=== PATIENT | male | born 1950 | race Caucasian/White ===

== ENCOUNTER 2020-07-03 21:22 | Inpatient (IN) | payer MEDICARE ==
[~2020-07-03] VITALS: Ht 180.3 cm; Wt 92.5 kg
[2020-07-03 21:23] VITALS: BP 186/87
[2020-07-03 21:38] LABS: ABSOLUTE NEUTROPHILS 6.3 thou/uL (1.4-8.2); BASOPHILS 1.5 % (0.0-2.0); EOSINOPHILS 5.4 % (0.0-3.0); HEMATOCRIT 39.6 % (42.0-52.0); HEMOGLOBIN 13.4 gm/dL (14.0-18.0); LYMPHOCYTES 24.9 % (24.0-44.0); MCH 29.1 pg (26.0-34.0); MCHC 33.9 g/dL (28.0-37.0); MCV 85.6 fL (80.0-100.0); PLATELET COUNT 322 thou/uL (150-400); POLYS 60.2 % (36.0-66.0); RBC 4.63 mil/uL (4.50-6.00); RDW 15.5 % (10.5-14.5); WBC 10.4 thou/uL (4.0-11.0)
[2020-07-03 21:48] LABS: ANION GAP 10 mmol/L (7-16); BUN 18 mg/dL (7-18); CALCIUM 8.1 mg/dL (8.5-10.1); CHLORIDE 101 mmol/L (98-107); CO2 24 mmol/L (21-32); CREATININE 1.1 mg/dL (0.7-1.3); GLUCOSE 103 mg/dL (74-106); POTASSIUM 4.9 mmol/L (3.5-5.1); SODIUM 135 mmol/L (136-145)
[2020-07-03 21:57] LABS: ALBUMIN 3.1 g/dL (3.4-5.0); SGOT 38 U/L (15-37); SGPT 18 U/L (30-65); TOTAL BILIRUBIN 0.6 mg/dL (0.2-1.0); TOTAL PROTEIN 7.7 g/dL (6.4-8.2); TROPONIN-I <0.06 ng/mL (<0.06)
[2020-07-03] MEDS ORDERED: PROTONIX40 M2 PO (22:14)
[2020-07-03 22:39] VITALS: BP 174/99
[2020-07-03 22:54] VITALS: BP 142/82
[2020-07-03 23:00] LABS: CHOLESTEROL 109 mg/dL (<200); HDL CHOLESTEROL 38 mg/dL (>40); LDL CHOLESTEROL 57 mg/dL (<100); SERUM ASSESSMENT Clear; TC:HDL 2.9 Ratio (Not establshd); TRIGLYCERIDE 73 mg/dL (<150); VLDL 15 mg/dL (<40)
[2020-07-03 23:30] VITALS: BP 148/81
[2020-07-04] VITALS (11 sets, daily range): BP systolic 91–181; BP diastolic 43–90
[2020-07-04 05:04] LABS: CALCIUM 8.6 mg/dL (8.5-10.1); CREATININE 1.1 mg/dL (0.7-1.3)
[2020-07-04 05:08] LABS: HEMATOCRIT 39.9 % (42.0-52.0); HEMOGLOBIN 13.3 gm/dL (14.0-18.0); MCH 28.7 pg (26.0-34.0); MCHC 33.2 g/dL (28.0-37.0); MCV 86.5 fL (80.0-100.0); RBC 4.62 mil/uL (4.50-6.00); RDW 15.3 % (10.5-14.5); WBC 9.7 thou/uL (4.0-11.0)
[2020-07-04 05:34] LABS: POTASSIUM 3.7 mmol/L (3.5-5.1)
--- NOTE | 2020-07-04 07:08 | EKG ---
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
--- NOTE | 2020-07-04 07:19 | NUR ---
RECEIVED REPORT FROM BRODIE ARMSTRONG RN.A/O X 4.UP WITH STANDBY ASSIST.DENIES CHEST PAIN.COMPLAIN OF RIGHT SHOULDER PAIN THIS MORNING.IBUPROFEN GIVEN.MONITOR SHOWS SR.POC CONTINUED.
--- NOTE | 2020-07-04 07:37 | NUR ---
consult for advanced dir. quan spoke with us and spiritual care to visit with alejandro about advanced dir.
--- NOTE | 2020-07-04 07:56 | EKG ---
[facility] [place] [address] ELECTROCARDIOGRAM REPORT Name: NELLIE LOCO YOHANA Room #: 211-P ADM IN M.R.#: [id number] Admission: 07/03/20 Attend Phys: Andrea Choe Discharge: Date of : 46 Report #: [id number] [facility] Test Date: 2020-07-04 Test Time: 07:20:32 Pat Name: NELLIE LOCO Department: Room: 211 P Gender: M Dish Carrier: JUAN : 1950 Requested By: Jacklyn Jennings Order Number: [id number] MD: Som Young Measurements Intervals [place] Rate: 76 P: 14 GA: 217 QRS: 6 QRSD: 97 T: 17 QT: 436 QTc: 491 Interpretive Statements Sinus rhythm Borderline prolonged GA interval Probable left ventricular hypertrophy Baseline wander in lead(s) V3 Compared to ECG 07/03/2020 21:27:37 No significant changes Electronically Signed On 07-04-2020 7:56:04 CDT by Som Young [email or web address] <ELECTRONICALLY SIGNED> By: Som Young MD, [facility] 07/04/20 0756 9 9 Som Young MD, [facility] /EPI
--- NOTE | 2020-07-04 11:59 | 2DMMODE ---
[facility] [address] [place] [address] 2 D/M-MODE ECHOCARDIOGRAM Name: NELLIE LOCO RAY Room #: 211-P ADM IN M.R.#: [id number] Admission: 07/03/20 Attend Phys: Andrea Choe Discharge: Date of : 46 Report #: [id number] THIS REPORT FOR: cc: Ena Delacruz MD, Cheryl Z. MD Park, Jin S. 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 Indications Chest Pain Echo Enhancing Agent Indication: Endocardial border delineation Agent(s) / Amount(s) Used: Optison 3 cc 2D Dimensions IVSd: 10.78 (7-11mm) LVOT Diam: 20.73 (18-24mm) LVDd: 45.19 mm PWd: 10.74 (7-11mm) Ascending Ao: 37.84 (22-36mm) LVDs: 29.08 (25-40mm) Aortic Root: 37.66 mm Aortic Valve AoV Peak Alek.: 1.29 m/s AO Peak Gr.: 6.68 mmHg LVOT Max P.89 mmHg LVOT Max V: 0.99 m/s JACK Vmax: 2.57 cm2 [facility] [address] [place] [address] 2 D/M-MODE ECHOCARDIOGRAM Name: NELLIE LOCO [place] Room #: 211-P ADM IN M.R.#: [id number] Admission: 07/03/20 Attend Phys: Andrea Latham Discharge: Date of : 46 Report #: [id number] Mitral Valve E/A Ratio: 0.9 MV Decel. Time: 319.67 ms MV E Max Alek.: 0.66 m/s MV A Alek.: 0.77 m/s MV PHT: 92.70 ms IVRT: 96.89 ms Pulmonary Valve PV Peak Alek.: 0.98 m/s PV Peak Gr.: 3.86 mmHg Tricuspid Valve TR Peak Alek.: 2.15 m/s TR Peak Gr.: 19.00 mmHg Left Ventricle The left ventricle is normal size. There is normal LV segmental wall motion. There is normal left ventricular wall thickness. The left ventricular systolic function is normal. LVEF is 55-60%. Mild diastolic dysfunction is present (impaired relaxation pattern). Right Ventricle The right ventricle is normal size. The right ventricular systolic function is normal. Atria The left atrium size is normal. The right atrium size is normal. Aortic Valve The Aortic valve is sclerotic. No aortic regurgitation is present. There is no aortic valvular stenosis. Mitral Valve The mitral valve is normal in structure. There is no mitral valve regurgitation noted. No evidence of mitral valve stenosis. Tricuspid Valve The tricuspid valve is normal in structure. Trace tricuspid regurgitation. Estimated PAP is 19mmHg plus the right atrial pressure. Pulmonic Valve Pulmonic valve is not well visualized. There is no pulmonic valvular regurgitation. [facility] [address] [place] [address] 2 D/M-MODE ECHOCARDIOGRAM Name: NELLIE LOCO Room #: 211-P [facility] IN M.R.#: [id number] Admission: 07/03/20 Attend Phys: Andrea Latham Discharge: Date of : 46 Report #: [id number] Great Vessels The aortic root and ascending aorta measure at the upper limits of normal. IVC is poorly visualized. Pericardium There is no pericardial effusion. <Conclusion> The left ventricle is normal size. There is normal left ventricular wall thickness. The left ventricular systolic function is normal. Mild diastolic dysfunction is present (impaired relaxation pattern). The right ventricle is normal size. The left atrium size is normal. The Aortic valve is sclerotic. There is no mitral valve regurgitation noted. <ELECTRONICALLY SIGNED> By: Devan Hidalgo MD 07/04/20 1159 1159 1159 Devan Hidalgo MD /INF
--- NOTE | 2020-07-04 15:53 | NUR ---
ASSESSMENT: CM REVIEWED CHART. PT WAS ADMITTED DUE TO CHEST PAIN. PT HAD CATH TODAY. PT REPORTS THAT HE LIVES AT HOME BY HIMSELF. PT REPORTS HE IS FULLY INDEPENDENT WITH ADLS AND AMBULATION. PT REPORTS NO HX OF HH OR SNF. PT REPORTS HE DOES NOT HAVE ANY DME OR THE NEED FOR IT. PT REPORTS HIS PCP IS DR. GARCAI IN [place], [place] AT [facility]. CM DISCUSSED ROLE. PT DOES NOT ANTICIPATE ANY NEEDS AT DISCHARGE. PT REPORTS HE MAY BE STAYING WITH HIS DAUGHTER FOR A FEW DAYS AT DISCHARGE.
--- NOTE | 2020-07-04 17:54 | NUR ---
RECEIVED PT'S CARE AROUND 0725; PT. ON BED; RESTING WITH EYES CLOSED; JESSICA ROUNDING ON PT.; PT. SCHEDULED FOR CARDIAC CATH; AM MORNING MEDS GIVEN; EDUCATED ABOUT IT; GONE FOR PROCEDURE BEFORE 0900; DAUGHTER AT THE BED SIDE AROUND 1100; NOTIFIED ABOUT PT. GONE FOR PROCEDURE; PER DAUGHTER PT. REQUESTED MEDICATIONS; DROPPED AT ROOM; PT'S BACK FROM PROCEDURE AROUND 1300; R. GROIN INCISION C/D/I; EDUCATED ABOUT BED REST UNTIL 1600; ST. UNDERSTANDING; EDUCATED ABOUT HOLDING PRESSURE IF COUGH OR SNEEZE; EDUCATED ABOUT CALLING IMMEDIATELY IF NOTICED BLEEDING OR SWELLING; [facility]STAND[facility]; THROUGH THE AFTERNOON NO HEMATOMA NOTICED; EDUCATED ABOUT FALL PRECAUTIONS; ST. UNDERSTANDING; DURING ROUNDING NOTICED PT. HOLDING MEDICATION BAG WHEN ASKED WHAT IS HE DOING ST. "TRYING TO TAKE MY PROTONIX"; EDUCATED ABOUT NOT TAKEN MEDICATION FROM HOME; ST. UNDERSTANDING; MEDICATION SENT TO PHARMACY; AFTER PROCEDURE SB DURING REST; ASSESSMENT CHARGED; FOLLOWING POC; WILL PASS ON REPORT;
[2020-07-05 00:15] VITALS: BP 157/79
[2020-07-05 03:20] LABS: HEMATOCRIT 37.2 % (42.0-52.0); HEMOGLOBIN 12.3 gm/dL (14.0-18.0); MCH 28.5 pg (26.0-34.0); MCV 86.5 fL (80.0-100.0); RBC 4.3 mil/uL (4.50-6.00); RDW 15.1 % (10.5-14.5); WBC 8.8 thou/uL (4.0-11.0)
[2020-07-05 03:37] LABS: ALBUMIN 2.8 g/dL (3.4-5.0); CALCIUM 8.1 mg/dL (8.5-10.1); CREATININE 1.2 mg/dL (0.7-1.3); POTASSIUM 3.7 mmol/L (3.5-5.1); TOTAL BILIRUBIN 0.4 mg/dL (0.2-1.0); TOTAL PROTEIN 6.8 g/dL (6.4-8.2); TROPONIN-I 0.11 ng/mL (<0.06)
--- NOTE | 2020-07-05 03:43 | NUR ---
PT IS ALERT AND ORIENTED X4. LUNGS ARE CLEAR. DENIES ANY PAIN WITH ASSESSMENT. RIGHT GROIN SITE CLEAN DRY AND INTACT. SLEEPING PILL GIVEN BUT PT UP WATCHING TV LATE THIS EVENING . ABDOMEN IS ROUND AND SOFT BOWEL SOUNDS ACTIVE X4. PT COMPLAINS HIS GERD AND STOMACHE BOTHERING HIM. BUT HE ATE TODAY HE REPORTS. CALL LIGHT WITHIN REACH IF NEEDS NURSING ASSISTANCE
[2020-07-05 04:54] VITALS: BP 140/73
[2020-07-05 07:55] VITALS: BP 126/67
[2020-07-05 08:00] VITALS: BP 126/67
[2020-07-05] MEDS ORDERED: CARVEDILOL3.125 MG PO (11:33)
[2020-07-05] MEDS ORDERED: CLOPIDOGREL75 MG PO (11:33)
[2020-07-05] MEDS ORDERED: LIPITOR 20 MG T20 M1 PO (11:33)
[2020-07-05] MEDS ORDERED: BAYER CHEWABLE81 MG PO (11:33)
[2020-07-05 11:42] VITALS: BP 140/73
--- NOTE | 2020-07-05 12:04 | NUR ---
PT CARE ASSUMED AT 0700. ASSESSMENTS CHARTED. MEDICATIONS CHARTED. LH IV. SINUS RHYTHM. URINAL. UP AD FITO. DAY TWO: STENT, RT GROIN, MYNX, C/D/I. PT DISCHARGED TO HOME. DISCHARGE PAPERWORK SIGNED. TELEMETRY D/C'D. IV D/C'D.
--- NOTE | 2020-07-07 07:15 | EKG ---
[address] [address] ELECTROCARDIOGRAM REPORT Name: CLAUDYNELLIEWEN MULLER Room #: 211-P [facility] IN M.R.#: [id number] Admission: 07/03/20 Attend Phys: Andrea Choe Discharge: 07/05/20 Date of : 46 Report #: [id number] [facility] ED Test Date: 2020-07-03 Test Time: 21:48:42 Pat Name: NELLIE LOCO Department: Room: 211 P Gender: M Director Payment: MAURA : 1950 Requested By: Paul Mark Order Number: [id number] MD: Stephen Duran Measurements Intervals [place] Rate: 78 P: [place]: QRS: 3 QRSD: 97 T: 21 QT: 414 QTc: 472 Interpretive Statements NSR ventricular hypertrophy Compared to ECG 07/03/2020 21:27:37 Left ventricular hypertrophy now present Electronically Signed On 07-07-2020 7:14:46 CDT by Stephen Duran [email or web address] <ELECTRONICALLY SIGNED> By: Stephen Duran MD, [facility] 07/07/20 0714 47 47 Stephen Duran MD, FACC /EPI
--- NOTE | 2020-07-07 07:19 | EKG ---
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
--- NOTE | 2020-07-08 10:35 | CATHLAB ---
[facility] [address] INVASIVE PROCEDURE REPORT Name: NELLIE LOCO Room #: 211-P [facility] IN M.R.#: [id number] Admission: 07/03/20 Attend Phys: Andrea Choe Discharge: 07/05/20 Date of : 46 Report #: [id number] THIS REPORT FOR: cc: Ena Delacruz MD, Cheryl Z. MD Mancuso, Gerald M. MD [facility] ~ APPROVED REPORT Study performed: 07/04/2020 11:35:15 Patient Details Patient Status: In-Patient Room #: The patient is a 70 year-old male Event Personnel Godwin Angulo Securities Attorney, Bishnu Alvarenga RN RN, Farrah Robert RTR, Young Acuna Roberta Monitor Procedures Performed Art Access - R femoral artery* Left Heart Cath w/or w/o Coronaries 1437655 LHC Hemostasis w/ Mynx 78066 Initial Mod Sed Same Phys/QHP Gr5y 608911 [address] Place w/wo Plasty Single CIRC 542197 61826 Mod Sed Same Phys/QHP Ea 957609 Indication Chest pain Procedure Narrative The Right Groin^ was infiltrated with 1% Lidocaine subcutaneous anesthesia. A PINNACLE 6FR Sheath #[id number] sheath was inserted into the RFA^. Coronary angiography was performed using coronary diagnostic catheters. The right coronary system was accessed and visualized with a JR4 catheter. The left coronary system was accessed and visualized with a JL4 catheter. The left ventricle was accessed and visualized with a PIGTAIL catheter. Left ventriculogram was performed in 30 degree projection. An aortogram of the abdominal aorta was performed. Closure device was deployed with a 6 Fr MYNXGRIP 6/7F #[id number]. The patient tolerated the procedure well and there were no complications associated with the procedure. There was no hematoma. Intraoperative Conscious Sedation Sedation start time: 11:55 Case end Time: 12:45 [facility] [address] [place] [address] INVASIVE PROCEDURE REPORT Name: CLAUDYNELLIE YOHANA Room #: 211-P [facility] IN M.R.#: [id number] Admission: 07/03/20 Attend Phys: Andrea Latham Discharge: 07/05/20 Date of : 46 Report #: [id number] Fentanyl 100 mcg Versed 2 mg Fluoro Time: 6.50 minutes Dose: DAP 55530.90 cGycm2 1440 mGy Contrast Type and Amount: Omnipaque 174 ml Hemodynamics The aortic pressure is 157/71 mmHg with a mean of 102 mmHg. The left ventricular pressure is 137/7 mmHg with a mean of mmHg. The left ventricular end diastolic pressure is 17 mmHg. PCI Technique Lesion Percutaneous coronary intervention was performed on the proximal left anterior descending artery segment. A LAUNCHER 6FR EBU 3.75 #[id number] Guide Catheter was used to engage the ostium. A Luge Wire .014 x 182CM #[id number] Interventional Guidewire was used to cross the lesion. BALLOON DILATION A Balloon catheter Sprinter OTW 3.0 x 12 #[id number] was inserted and inflated up to 12.00atm for 23seconds. STENT DEPLOYMENT A stent RESOLUTE DOMO OTW 4.0 X 12 #[id number] was inserted and inflated up to 14.00atm for 34seconds. POST STENT DEPLOYMENT BALLOON DILATION A Balloon catheter Euphora NC RX 3.75 x 8 #[id number] was inserted and inflated up to 22.00atm for 38seconds. Conclusion #1. Successful PTCA stent of a high-grade proximal calcified LAD lesion 95% to 0% placement of a 4.0 x 12 resolute Domo stent postdilated with a noncompliant balloon ASHLEE grade III flow this vessel extends around the apex moderate to the disease distally #2 left main with mild disease and calcification giving rise to the LAD and circumflex. #3 the circumflex OM is nondominant but moderate distribution with mild disease and proximal calcification. #4 large dominant right coronary artery with calcification moderate ectasia it looks like a previously placed proximal stent widely patent the PDA is moderately diseased. #5 normal left ventricular size with subtle anterior apical wall leg EF 55% #6 abdominal aorta is tortuous with moderate ectasia and a small infrarenal aortic aneurysm. Brisk flow into the iliac system which [facility] [address] [place] [address] INVASIVE PROCEDURE REPORT Name: NELLIE LOCO Room #: 211-P [facility] IN M.R.#: [id number] Admission: 07/03/20 Attend Phys: Andrea Latham Discharge: 07/05/20 Date of : 46 Report #: [id number] is nonaneurysmal. Recommendations and plan: Continue aggressive risk factor modification. Dual antiplatelet therapy has been initiated. Patient to CCU to follow post coronary stent protocol. <ELECTRONICALLY SIGNED> By: Godwin Angulo MD, FACC 07/08/20 1035 1035 Godwin Angulo MD, FACC /INF
== END 2020-07-05 12:00 | disposition home or self-care (01) | DRG 246 ==
LOC: ER 21:22 → 2N 22:29 → EROBS 22:29 → 2N 23:18
PROVIDERS: Nurse Practitioner Adult Health; Nurse Practitioner Family; Physician Assistant; ADMIT Hospitalist; ATTEND Hospitalist
PROC: B2111ZZ Fluoroscopy of Multiple Coronary Arteries using Low Osmolar Contrast (ICD-10-PCS; principal; 2020-07-04)
PROC: 4A023N7 Measurement of Cardiac Sampling and Pressure, Left Heart, Percutaneous Approach (ICD-10-PCS; principal; 2020-07-04)
PROC: 027034Z Dilation of Coronary Artery, One Artery with Drug-eluting Intraluminal Device, Percutaneous Approach (ICD-10-PCS; principal; 2020-07-04)
PROC: B4101ZZ Fluoroscopy of Abdominal Aorta using Low Osmolar Contrast (ICD-10-PCS; principal; 2020-07-04)
PROC: B2151ZZ Fluoroscopy of Left Heart using Low Osmolar Contrast (ICD-10-PCS; principal; 2020-07-04)
DX: I25.10 Atherosclerotic heart disease of native coronary artery without angina pectoris (principal); J96.00 Acute respiratory failure, unspecified whether with hypoxia or hypercapnia; E78.5 Hyperlipidemia, unspecified; K21.9 Gastro-esophageal reflux disease without esophagitis; Z60.2 Problems related to living alone; I10 Essential (primary) hypertension; Z88.6 Allergy status to analgesic agent; Z88.8 Allergy status to other drugs, medicaments and biological substances; Z86.73 Personal history of transient ischemic attack (TIA), and cerebral infarction without residual deficits; Z82.49 Family history of ischemic heart disease and other diseases of the circulatory system; Z79.82 Long term (current) use of aspirin; Z79.899 Other long term (current) drug therapy; Z83.42 Family history of familial hypercholesterolemia
CPT/HCPCS: 10081

== ENCOUNTER 2020-10-27 09:47 | Emergency (ER) | payer MEDICARE ==
[~2020-10-27] VITALS: Ht 180.3 cm; Wt 94.3 kg
[~2020-10-27 09:47] MED LIST: BAYER CHEWABLE81 MG PO; CARVEDILOL3.125 MG PO; CLOPIDOGREL75 MG PO; LIPITOR 20 MG T20 M1 PO; PROTONIX40 M2 PO
[2020-10-27 10:51] LABS: ABSOLUTE NEUTROPHILS 5.5 thou/uL (1.4-8.2); BASOPHILS 0.9 % (0.0-2.0); EOSINOPHILS 1.8 % (0.0-3.0); HEMATOCRIT 34.7 % (42.0-52.0); HEMOGLOBIN 12.1 gm/dL (14.0-18.0); LYMPHOCYTES 20.6 % (24.0-44.0); MCH 29.7 pg (26.0-34.0); MCV 84.8 fL (80.0-100.0); PLATELET COUNT 278 thou/uL (150-400); POLYS 68.7 % (36.0-66.0); RDW 13.9 % (10.5-14.5); WBC 8.1 thou/uL (4.0-11.0)
[2020-10-27 11:06] LABS: ANION GAP 8 mmol/L (7-16); BUN 10 mg/dL (7-18); CALCIUM 8.4 mg/dL (8.5-10.1); CHLORIDE 99 mmol/L (98-107); CO2 28 mmol/L (21-32); CREATININE 1.1 mg/dL (0.7-1.3); GLUCOSE 112 mg/dL (74-106); POTASSIUM 3.5 mmol/L (3.5-5.1); SODIUM 135 mmol/L (136-145)
[2020-10-27 11:20] LABS: ALBUMIN 3.1 g/dL (3.4-5.0); MAGNESIUM 1.7 mg/dL (1.8-2.4); SGOT 16 U/L (15-37); SGPT 16 U/L (16-63); TOTAL BILIRUBIN 0.4 mg/dL (0.2-1.0); TOTAL PROTEIN 6.9 g/dL (6.4-8.2); TROPONIN-I <0.06 ng/mL (<0.06)
[2020-10-27] MEDS ORDERED: AZITHROMYCIN500 MG PO (12:58)
[2020-10-27] MEDS ORDERED: PREDNISONE 20 M20 MG PO (12:58)
[2020-10-27 13:21] VITALS: BP 159/90
--- NOTE | 2020-10-27 15:15 | EKG ---
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 : 1950 Requested By: Abdiel Rodriguez Order Number: [id number] MD: Stephen Duran Measurements Intervals [place] Rate: 74 P: 27 CO: 208 QRS: 47 QRSD: 92 T: 31 QT: 423 QTc: 470 Interpretive Statements Sinus rhythm Abnormal inferior Q waves Baseline wander in lead(s) V3 Compared to ECG 07/05/2020 07:55:27 Inferior Q waves now present Q waves now present Electronically Signed On 10-27-2020 15:15:00 CDT by Stephen Duran [email or web address] <ELECTRONICALLY SIGNED> By: Stephen Duran MD, [facility] 10/27/20 1515 0957 0957 Stephen Duran MD, FACC /EPI
== END 2020-10-27 13:22 | disposition home or self-care (01) ==
LOC: ER 09:47
PROVIDERS: Emergency Medicine
DX: J40 Bronchitis, not specified as acute or chronic (principal); Z20.822 Contact with and (suspected) exposure to COVID-19; K21.9 Gastro-esophageal reflux disease without esophagitis; I10 Essential (primary) hypertension; Z88.5 Allergy status to narcotic agent

== ENCOUNTER 2020-11-02 04:02 | Inpatient (IN) | payer MEDICARE ==
[~2020-11-02] VITALS: Ht 180.3 cm; Wt 90.3 kg
[~2020-11-02 04:02] MED LIST changes: +AZITHROMYCIN500 MG PO; +PREDNISONE 20 M20 MG PO
[2020-11-02 04:03] VITALS: BP 150/95
[2020-11-02] MEDS ORDERED: LISINOPRIL10 MG PO (04:12)
[2020-11-02 04:39] LABS: ABSOLUTE NEUTROPHILS 6.3 thou/uL (1.4-8.2); BASOPHILS 0.2 % (0.0-2.0); EOSINOPHILS 4.2 % (0.0-3.0); HEMATOCRIT 39.1 % (42.0-52.0); HEMOGLOBIN 13.3 gm/dL (14.0-18.0); LYMPHOCYTES 27.6 % (24.0-44.0); MCH 29.4 pg (26.0-34.0); MCV 86.4 fL (80.0-100.0); MONOCYTES 8.1 % (1.0-8.0); PLATELET COUNT 325 thou/uL (150-400); POLYS 59.9 % (36.0-66.0); RBC 4.53 mil/uL (4.50-6.00); RDW 14.6 % (10.5-14.5); WBC 10.5 thou/uL (4.0-11.0)
[2020-11-02 04:43] LABS: ANION GAP 8 mmol/L (7-16); BUN 14 mg/dL (7-18); CALCIUM 8.4 mg/dL (8.5-10.1); CHLORIDE 104 mmol/L (98-107); CO2 26 mmol/L (21-32); CREATININE 1.1 mg/dL (0.7-1.3); GLUCOSE 101 mg/dL (74-106); POTASSIUM 3.7 mmol/L (3.5-5.1); SODIUM 138 mmol/L (136-145)
[2020-11-02 04:52] LABS: ALBUMIN 3.2 g/dL (3.4-5.0); SGOT 18 U/L (15-37); SGPT 16 U/L (30-65); TOTAL BILIRUBIN 0.4 mg/dL (0.2-1.0); TOTAL PROTEIN 7.4 g/dL (6.4-8.2); TROPONIN-I <0.06 ng/mL (<0.06)
[2020-11-02 07:44] LABS: URINE BILIRUBIN NEGATIVE (Negative); URINE BLOOD TRACE (Negative); URINE CLARITY CLEAR; URINE COLOR YELLOW; URINE GLUCOSE-RANDOM* NEGATIVE (Negative); URINE KETONES NEGATIVE (Negative); URINE LEUKOCYTES-REFLEX NEGATIVE (Negative); URINE PROTEIN (DIPSTICK) NEGATIVE (Negative); URINE UROBILINOGEN 0.2 E.U./dl (0.2-1.0)
[2020-11-02 07:45] LABS: URINE NITRITE-REFLEX POSITIVE (Negative)
[2020-11-02 09:14] LABS: CASTS None Seen /LPF (None Seen); SQUAMOUS 0-3 Few /LPF (0-3); URINE WBC-REFLEX 0-5 Rare /HPF (0-5)
[2020-11-02 09:15] LABS: BACTERIA-REFLEX 1-9 Few /HPF (None Seen); CRYSTALS None Seen /LPF (None Seen); URINE RBC None Seen /HPF (NONE SEEN)
[2020-11-02 13:39] VITALS: BP 151/94
[2020-11-02 16:06] VITALS: BP 157/94
--- NOTE | 2020-11-02 18:48 | NUR ---
1734 - PATIENT HAS C/O CHEST PAIN, WILL NOT RATE PAIN BUT STATES "IT'S LIKE A FIST ON MY CHEST" AND POINTS TO HIS STERNUM AND SAYS IT DOES RADIATE TO HIS JAW. DR. MONTEJO NOTIFIED, ORDERS FOR EKG, CARDIOLOGY CONSULT, ASA, AND TROPONIN. 1846 - DR. KNUTSON UPDATED VIA TELEPHONE. DISCUSSED EKG RESULTS. ORDERS TO KEEP PATIENT NPO AT MIDNIGHT AND HE WILL ASSESS IN THE AM.
[2020-11-02 21:00] VITALS: BP 144/89
[2020-11-03 04:45] VITALS: BP 156/91
[2020-11-03 05:15] LABS: HEMATOCRIT 36.6 % (42.0-52.0); HEMOGLOBIN 12.9 gm/dL (14.0-18.0); MCH 30.4 pg (26.0-34.0); MCHC 35.1 g/dL (28.0-37.0); MCV 86.6 fL (80.0-100.0); RBC 4.23 mil/uL (4.50-6.00); RDW 14.2 % (10.5-14.5)
[2020-11-03 05:30] LABS: CALCIUM 7.9 mg/dL (8.5-10.1); CREATININE 1.2 mg/dL (0.7-1.3); POTASSIUM 3.9 mmol/L (3.5-5.1)
--- NOTE | 2020-11-03 06:00 | NUR ---
ALL OF PATIENT TESTING DID RETURN NEGATIVE, CT HEAD, CHEST XRAY. LABS. TROP ALL NEGATIVE. NO EVIDANCE OF ISSUES HEART MONITOR NSR IN THE 70'S. NO REASON PATIENT CAN NOT BE DISCHARGED UNLESS THE NEED IS TWO MIDNIGHTS FOR PLACEMENT. ROUNDS WERE DONE. BED ALARM ON . THE BED IS IN A LOW AND LOCKED POSITION.
--- NOTE | 2020-11-03 07:30 | EKG ---
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 SCHNEIDER : 1950 Requested By: Abel Rocha Order Number: [id number] MD: Stephen Duran Measurements Intervals [place] Rate: 76 P: 15 [place]: 195 QRS: 5 QRSD: 92 T: 33 QT: 417 QTc: 469 Interpretive Statements Sinus rhythm Probable left atrial enlargement Left ventricular hypertrophy Baseline wander in lead(s) V2,V4 Compared to ECG 11/02/2020 04:06:02 Left ventricular hypertrophy now present Myocardial infarct finding no longer present Electronically Signed On 11-03-2020 7:30:44 CDT by Stephen Duran [email or web address] <ELECTRONICALLY SIGNED> By: Stephen Duran MD, FAC 11/03/20 0730 1759 1759 Stephen Duran MD, [facility] /EPI
--- NOTE | 2020-11-03 07:30 | EKG ---
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: YANI : 1950 Requested By: Sunday Stone Order Number: [id number] MD: Stephen Duran Measurements Intervals [place] Rate: 86 P: 1 VA: 207 QRS: -5 QRSD: 89 T: 33 QT: 390 QTc: 467 Interpretive Statements Sinus rhythm Probable left atrial enlargement Inferior infarct, old Baseline wander in lead(s) V3,V4 Compared to ECG 10/27/2020 09:57:16 Myocardial infarct finding now present Inferior Q waves no longer present Q waves no longer present Electronically Signed On 11-03-2020 7:30:36 CDT by Stephen Duran [email or web address] <ELECTRONICALLY SIGNED> By: Stephen Duran MD, FAC 11/03/20 0730 0406 0406 Stephen Duran MD, [facility] /EPI
[2020-11-03 08:43] VITALS: BP 135/75
--- NOTE | 2020-11-03 11:53 | 2DMMODE ---
[facility] [place] [address] 2 D/M-MODE ECHOCARDIOGRAM Name: NELLIE LOCO RAY Room #: 219-P ADM IN M.R.#: [id number] Admission: 11/02/20 Attend Phys: Abel Rocha MD Discharge: Date of : 46 Report #: [id number] THIS REPORT FOR: cc: Ena Delacruz MD, Cheryl Z. MD Park, Jin S. MD ~ APPROVED REPORT Study performed: 11/03/2020 11:05:51 EXAM: Comprehensive 2D, Doppler, and color-flow Echocardiogram Patient Location: Bedside Room #: 219 Status: routine BSA: 2.11 HR: 82 bpm BP: 135/75 mmHg Rhythm: NSR Other Information Study Quality: Adequate Indications Syncope Hx: CAD, stent, HTN, HLP, TIA. 2D Dimensions RVDd: 35.00 mm IVSd: 12.00 (7-11mm) LVOT Diam: 23.00 (18-24mm) LVDd: 42.00 mm PWd: 12.00 (7-11mm) Ascending Ao: 36.00 (22-36mm) LVDs: 28.00 (25-40mm) Left Atrium: 37.00 (27-40mm) Aortic Root: 36.00 mm Volumes Left Atrial Volume (Systole) Single Plane 4CH: 33.52 mL Single Plane 2CH: 41.02 mL LA ESV Index: 19.00 mL/m2 Aortic Valve AoV Peak Alek.: 1.53 m/s AO Peak Gr.: 9.41 mmHg LVOT Max P.88 mmHg LVOT Max V: 1.40 m/s [facility] [address] [place] [address] 2 D/M-MODE ECHOCARDIOGRAM Name: NELLEI LOCO Room #: 219-P [facility] IN .R.#: [id number] Admission: 11/02/20 Attend Phys: Abel Rocha, Discharge: Date of : 46 Report #: [id number] Vmax: 3.73 cm2 Mitral Valve E/A Ratio: 0.6 MV Decel. Time: 256.00 ms MV E Max Alek.: 0.62 m/s MV A Alek.: 1.01 m/s MV PHT: 74.24 ms IVRT: 83.04 ms Pulmonary Valve PV Peak Alek.: 0.82 m/s PV Peak Gr.: 2.68 mmHg Tricuspid Valve TR Peak Alek.: 2.12 m/s TR Peak Gr.: 18.00 mmHg Left Ventricle The left ventricle is normal size. There is normal LV segmental wall motion. Mild concentric left ventricular hypertrophy. Left ventricular systolic function is normal. LVEF is 60%. Mild diastolic dysfunction is present (impaired relaxation pattern). Right Ventricle The right ventricle is normal size. The right ventricular systolic function is normal. Atria The left atrium size is normal. The right atrium size is normal. Aortic Valve Aortic valve is mildly calcified. No aortic regurgitation is present. There is no aortic valvular stenosis. Mitral Valve The mitral valve is normal in structure. There is no mitral valve regurgitation noted. No evidence of mitral valve stenosis. Tricuspid Valve The tricuspid valve is normal in structure. Trace tricuspid regurgitation. Estimated PAP is 18mmHg plus the right atrial pressure. Pulmonic Valve The pulmonary valve is normal in structure. Trace pulmonic [facility] [address] [place] [address] 2 D/M-MODE ECHOCARDIOGRAM Name: CLAUDYNELLIE YOHANA Room #: 219-P [facility] IN M.R.#: [id number] Admission: 11/02/20 Attend Phys: Abel Rocha, Discharge: Date of : 46 Report #: [id number] regurgitation. Great Vessels The aortic root is normal in size. The ascending aorta is normal in size. IVC is normal in size and collapses >50% with inspiration. Pericardium There is no pericardial effusion. <Conclusion> The left ventricle is normal size. Mild concentric left ventricular hypertrophy. Left ventricular systolic function is normal. Mild diastolic dysfunction is present (impaired relaxation pattern). The right ventricle is normal size. The left atrium size is normal. Aortic valve is mildly calcified. There is no mitral valve regurgitation noted. Trace tricuspid regurgitation. <ELECTRONICALLY SIGNED> By: Devan Hidalgo MD 11/03/20 1152 115 115 Devan Hidalgo MD /INF
[2020-11-03 15:54] VITALS: BP 108/63
[2020-11-03 22:25] VITALS: BP 105/69
[2020-11-04 04:45] VITALS: BP 133/79
[2020-11-04 08:20] VITALS: BP 110/73
[2020-11-04] MEDS ORDERED: CEFPODOXIME PR200 M1 PO (11:05)
[2020-11-04 11:24] VITALS: BP 110/73
[2020-11-04 11:35] VITALS: BP 110/73
--- NOTE | 2020-11-04 17:38 | NUR ---
Patient admits with syncople episode at home. Patient lives alone in independent apt with 6 steps to apt. 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 Dtr called and sp with RN and reports she would like HH care for patient at dc. Spoke with patient and verified address and PCP. Patient with no preference for HH agency. Faxed referral to [facility] who can accept. Plan dc home today. Gave dtr information regarding advance directives. no further needs
== END 2020-11-04 14:49 | disposition home or self-care (01) | DRG 690 ==
LOC: ER 04:02 → 2N 13:49 → EROBS 13:49 → 2N 13:50
PROVIDERS: Student in an Organized Health Care Education/Training Program; ADMIT Family Medicine; ATTEND Family Medicine
DX: N39.0 Urinary tract infection, site not specified (principal); N17.9 Acute kidney failure, unspecified; E86.0 Dehydration; R55 Syncope and collapse; Z20.822 Contact with and (suspected) exposure to COVID-19; I25.10 Atherosclerotic heart disease of native coronary artery without angina pectoris; I10 Essential (primary) hypertension; R53.81 Other malaise; E78.5 Hyperlipidemia, unspecified; Z60.2 Problems related to living alone; K59.00 Constipation, unspecified; N40.0 Benign prostatic hyperplasia without lower urinary tract symptoms; K21.9 Gastro-esophageal reflux disease without esophagitis; Z88.8 Allergy status to other drugs, medicaments and biological substances; Z88.6 Allergy status to analgesic agent; Z79.899 Other long term (current) drug therapy; Z79.82 Long term (current) use of aspirin; Z95.5 Presence of coronary angioplasty implant and graft; Z82.49 Family history of ischemic heart disease and other diseases of the circulatory system; Z86.73 Personal history of transient ischemic attack (TIA), and cerebral infarction without residual deficits
CPT/HCPCS: 10081

== ENCOUNTER 2020-11-18 05:29 | Emergency (ER) | payer MEDICARE ==
[~2020-11-18] VITALS: Ht 180.3 cm; Wt 91.6 kg
[~2020-11-18 05:29] MED LIST changes: +CEFPODOXIME PR200 M1 PO; +LISINOPRIL10 MG PO
[2020-11-18 06:07] LABS: BE(vivo) 0.4 mmol/L (-2 to +3); HCO3 23.6 mmol/L (22.0-26.0); PCO2 33.5 mmHg (35.0-45.0); PO2 94.3 mmHg (80.0-100.0); pH 7.465 (7.360-7.450); sO2 97.6 % (92.0-98.0)
[2020-11-18 06:27] LABS: ANION GAP 12 mmol/L (7-16); BUN 13 mg/dL (7-18); CALCIUM 8.6 mg/dL (8.5-10.1); CHLORIDE 101 mmol/L (98-107); CO2 23 mmol/L (21-32); CREATININE 1.1 mg/dL (0.7-1.3); GLUCOSE 95 mg/dL (74-106); POTASSIUM 3.4 mmol/L (3.5-5.1); SODIUM 136 mmol/L (136-145)
[2020-11-18 06:36] LABS: ALBUMIN 3.3 g/dL (3.4-5.0); SGOT 19 U/L (15-37); SGPT 21 U/L (30-65); TOTAL BILIRUBIN 0.4 mg/dL (0.2-1.0); TOTAL PROTEIN 7.5 g/dL (6.4-8.2); TROPONIN-I <0.06 ng/mL (<0.06)
--- NOTE | 2020-11-18 07:27 | EKG ---
[place] [address] [facility] [place] [address] ELECTROCARDIOGRAM REPORT Name: CLAUDYNELLIE YOHANA Room #: [facility]#: [id number] Admission: 11/18/20 Attend Phys: Discharge: Date of : 46 Report #: [id number] [facility] ED Test Date: 2020-11-18 Test Time: 06:19:39 Pat Name: NELLIE LOCO Department: Room: Gender: M Intensivist: ANDIE : 1950 Requested By: Gary Cobb Order Number: [id number] MD: Stephen Duran Measurements Intervals [place] Rate: 78 P: 45 TX: 191 QRS: 4 QRSD: 94 T: 22 QT: 394 QTc: 449 Interpretive Statements Sinus rhythm Baseline wander in lead(s) V3 Compared to ECG 11/02/2020 17:59:05 Left ventricular hypertrophy no longer present Electronically Signed On 11-18-2020 7:27:40 CDT by Stephen Duran [email or web address] <ELECTRONICALLY SIGNED> By: Stephen Duran MD, [facility] 11/18/20726 8 8 Stephen Duran MD, FACDevyn /EPI
[2020-11-18 08:24] LABS: ABSOLUTE NEUTROPHILS 5.7 thou/uL (1.4-8.2); BASOPHILS 1.1 % (0.0-2.0); EOSINOPHILS 3.9 % (0.0-3.0); HEMATOCRIT 38.8 % (42.0-52.0); HEMOGLOBIN 13.4 gm/dL (14.0-18.0); LYMPHOCYTES 20.9 % (24.0-44.0); MCH 29.8 pg (26.0-34.0); MCHC 34.5 g/dL (28.0-37.0); MCV 86.4 fL (80.0-100.0); MONOCYTES 7.8 % (1.0-8.0); PLATELET COUNT 303 thou/uL (150-400); POLYS 66.3 % (36.0-66.0); RBC 4.49 mil/uL (4.50-6.00); WBC 8.6 thou/uL (4.0-11.0)
[2020-11-18 09:43] VITALS: BP 167/104
== END 2020-11-18 09:44 | disposition home or self-care (01) ==
LOC: ER 05:29
PROVIDERS: Emergency Medicine
DX: R06.02 Shortness of breath (principal); Z20.822 Contact with and (suspected) exposure to COVID-19; K21.9 Gastro-esophageal reflux disease without esophagitis; I10 Essential (primary) hypertension; Z79.82 Long term (current) use of aspirin; Z79.899 Other long term (current) drug therapy; Z88.6 Allergy status to analgesic agent; Z88.8 Allergy status to other drugs, medicaments and biological substances; Z86.73 Personal history of transient ischemic attack (TIA), and cerebral infarction without residual deficits

== ENCOUNTER 2020-11-30 17:24 | Inpatient (IN) | payer MEDICARE ==
[~2020-11-30] VITALS: Ht 182.9 cm; Wt 91.6 kg
[2020-11-30 17:25] VITALS: BP 115/70
[2020-11-30] MEDS ORDERED: TRAZODONE HCL50 MG PO (17:42)
[2020-11-30 18:27] LABS: ABSOLUTE NEUTROPHILS 11.1 thou/uL (1.4-8.2); BASOPHILS 0.4 % (0.0-2.0); EOSINOPHILS 0.1 % (0.0-3.0); HEMATOCRIT 39.6 % (42.0-52.0); HEMOGLOBIN 13.2 gm/dL (14.0-18.0); LYMPHOCYTES 8.6 % (24.0-44.0); MCHC 33.4 g/dL (28.0-37.0); MCV 86.8 fL (80.0-100.0); MONOCYTES 5.7 % (1.0-8.0); PLATELET COUNT 268 thou/uL (150-400); POLYS 85.2 % (36.0-66.0); RBC 4.56 mil/uL (4.50-6.00); RDW 14.5 % (10.5-14.5); WBC 13.1 thou/uL (4.0-11.0)
[2020-11-30 18:29] LABS: ANION GAP 13 mmol/L (7-16); BUN 20 mg/dL (7-18); CALCIUM 8.9 mg/dL (8.5-10.1); CHLORIDE 98 mmol/L (98-107); CO2 24 mmol/L (21-32); CREATININE 1.8 mg/dL (0.7-1.3); GLUCOSE 120 mg/dL (74-106); SODIUM 135 mmol/L (136-145)
--- NOTE | 2020-11-30 18:30 | NUR ---
THIS RN SPOKE WITH CALLIERN AT [facility] REGARDING PT'S HEALTH STATUS AND REASON FOR ER VISIT. PER HILDA, TRAZADONE IMMEDIATE RELEASE HAS 1-2HRS OF PEAK TIME, MOST ADULTS CAN TOLERATE UP TO 1200MG. PT STABLE AT THIS TIME AND VITALS STABLE. PATIENT SHOULD BE MONITORED FOR DROWSINESS, ATAXIA, SLURRED SPEECH, N/V AND PROLONGED QT INTERVALS FOR A COUPLE OF HOURS. CHECK ACETAMINO PHEN AND SALICYLATE LEVELS. ALSO MONITOR RESPORATORY STATUS, ADMINISTER ANTI EMETICS FOR N/V.
[2020-11-30 18:37] LABS: ALBUMIN 3.3 g/dL (3.4-5.0); DIRECT BILIRUBIN 0.1 mg/dL (<0.1-0.2); SALICYLATE < 2.8 mg/dL (2.8-20.0); SGOT 25 U/L (15-37); SGPT 19 U/L (16-63); TOTAL BILIRUBIN 0.5 mg/dL (0.2-1.0); TOTAL PROTEIN 7.4 g/dL (6.4-8.2)
[2020-11-30 18:54] LABS: URINE BLOOD 3+ (Negative); URINE CLARITY SL CLOUDY; URINE COLOR YELLOW; URINE GLUCOSE-RANDOM* NEGATIVE (Negative); URINE KETONES 1+ (Negative); URINE LEUKOCYTES-REFLEX NEGATIVE (Negative); URINE NITRITE-REFLEX NEGATIVE (Negative); URINE PROTEIN (DIPSTICK) 2+ (Negative); URINE SPECIFIC GRAVITY 1.025 (1.005-1.035)
[2020-11-30 18:57] LABS: ICTOTEST (BILI CONFIRMATORY) Negative (Negative); URINE BILIRUBIN NEGATIVE (Negative)
[2020-11-30 19:05] LABS: FINE GRANULAR CASTS 4-10 Moderate /LPF (None Seen); SQUAMOUS 0-3 Few /LPF (0-3)
[2020-11-30 19:06] LABS: BACTERIA-REFLEX None Seen /HPF (None Seen); CRYSTALS None Seen /LPF (None Seen); URINE RBC >20 Many /HPF (NONE SEEN); URINE WBC-REFLEX 0-5 Rare /HPF (0-5)
[2020-11-30 19:14] LABS: AMP/METHAMP Negative (Negative); BARBITURATES Negative (Negative); BENZODIAZEPINES Negative (Negative); COCAINE Negative (Negative); METHADONE Negative (Negative); OPIATES Negative (Negative); PCP Negative (Negative)
[2020-12-01 02:11] VITALS: BP 160/88
[2020-12-01 02:55] VITALS: BP 154/79
--- NOTE | 2020-12-01 04:17 | NUR ---
PT WAS ADMITTED TO THE UNIT FROM THE ER IN A STABLE CONDITION.ADMISSION COMPLETED.PT DENIED PAIN /N/V SO FAR.ONE TO ONE SITTER PROVIDED DUE TO PT OVERDOSE AT HOME.SMALL LACERATION ABOVE L EYE.PT ABLE TO MAKE HIS NEEDS KNOWN.CALL LIGHT WITHIN REACH.
--- NOTE | 2020-12-01 09:33 | NUR ---
ASSESSMENT: CM REVIEWED CHART AND SPOKE WITH PATIENT AT THE BEDSIDE. PT WAS ADMITTED AFTER INGESTING AROUND 25-30 TABS OF 50MG TRAZODONE PER REPORTS. PT LIVES ALONE IN AN APT AND HAS HX OF DEMENTIA. PT CURRENTLY DENYING SI AND IS ON A 1:1 UNTIL CLEARED BY PSYCH. PT REPORTS THAT HE STAYS IN AN APT ALONE. PT REPORTS HE IS INDEPENDENT WITH ADLS AND AMBULATION. PT REPORTS HE DOES NOT USE ANY DME. PT STATES THAT HIS FAMILY IS SUPPORTIVE AND REPORTS THAT HIS DAUGHTER AND GRANDDAUGHTER HELP BRING GROCERIES. PT DENIES HAVING HH IN THE PAST OR BEING TO A SNF. CM DISCUSSED ROLE. PT STATES HE IS OPEN TO DOING WHAT IS RECOMMENDED AT DISCHARGE. CM DISCUSSED LIKELY NEED FOR HH OR SNF AND PT REPORTS HE WOULD HAVE NO PREFERENCE OF HH COMPANY AT DISCHARGE. CM WILL PROVIDE PT WITH SNF LIST FOR HIM TO REVIEW OF SNF IN NETWORK WITH HIS INSURANCE. PHYSICAL THERAPY SAW PATIENT AND RECOMMENDING HH/SNF. CM DISCUSSED THAT INSURANCE AUTH WOULD NEED TO BE SUBMITTED FOR SNF. CM ATTEMPTED TO REACH PATIENTS DAUGHTER YONI BUT UNABLE TO REACH AT THE NUMBER IN CHART. BEDSIDE RN HAD CONTACT NUMBER [phone] AND CM LEFT MESSAGE. CM WILL CONTINUE TO FOLLOW TO ASSIST NEEDED.
[2020-12-01 12:53] LABS: HEMATOCRIT 37.3 % (42.0-52.0); HEMOGLOBIN 12.3 gm/dL (14.0-18.0); MCH 28.5 pg (26.0-34.0); MCHC 32.9 g/dL (28.0-37.0); MCV 86.7 fL (80.0-100.0); RBC 4.3 mil/uL (4.50-6.00); WBC 8.3 thou/uL (4.0-11.0)
[2020-12-01 13:04] LABS: CALCIUM 8.2 mg/dL (8.5-10.1); CREATININE 1.3 mg/dL (0.7-1.3); POTASSIUM 3.8 mmol/L (3.5-5.1)
--- NOTE | 2020-12-01 14:50 | NUR ---
Assess due to notification of unintentional wt loss 14-23 lb. Admit with BRANDAN and trazadone overdose. Pt with dementia, lives alone, psych consult pending. Family helps with groceries. No wt loss is noted per [facility] chart review-pt stable around 200-204 lb. New diet advance. Follow trends. presents low nutrition risk at this time.
--- NOTE | 2020-12-01 15:08 | EKG ---
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
[2020-12-01 19:40] VITALS: BP 126/81
--- NOTE | 2020-12-02 02:28 | NUR ---
PT CARE ASSUMED WITH 1:1 STAFF AT BEDSIDE WITH PT.PT IS A/O X4.PT IS UP WITH X1 ASSIST WITH GAIT BELT AND WALKER TO BATHROOM AND USES URINAL TO VOID.PT DENIED ANY PLAN OF SI AT TIME OF REASSESSMENT.PT IS ON ROOM AIR.IV ACCESS ON RAC WITH NS AT 100CC/HR.WILL CONTINUE TO MONITOR PER POC
[2020-12-02 05:29] VITALS: BP 175/88
[2020-12-02 08:27] VITALS: BP 174/98
[2020-12-02] MEDS ORDERED: NORVASC5 MG PO (11:21)
[2020-12-02] MEDS ORDERED: MIRALAX17 GM PO (11:21)
--- NOTE | 2020-12-02 14:00 | NUR ---
ON-GOING ASSESSMENT: CM REVIEWED CHART AND SPOKE WITH ALEX OQUENDO FROM [facility] WHO REPORTS THEY CAN ACCEPT PATIENT AND SHE STATES HIS INSURANCE IS IN NETWORK. CM NOTIFIED PT WELL PATIENTS DAUGHTER YONI. CM ALSO REACHED OUT TO [facility] WHO IS CURRENTLY FULL ANY DO NOT ANTICIPATE HAVING A BED. CM ALSO NOTIFIED PT AND DAUGHTER THAT [facility] HAS A [facility]ORY UNIT IN [place]. PT AND DAUGHTER ARE AGREEABLE TO [place] IN [place]. CM NOTIFIED ATTENDING AND DR. TAYLOR. DISCHARGE ORDERS WERE FAXED TO [facility] AND CONFIRMED THEY RECEIVED IT. 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 BEDSIDE RN WAS GIVEN THE CONTACT NUMBER FOR REPORT. CM ARRANGED TRANSPORTATION VIA AMBULANCE THROUGH [facility] AND TRANSPORT TIME IS SCHEDULED FOR 1600. BEDSIDE RN, PT, AND PTS DAUGHTER AWARE. CONTACT FOR [facility] IF NEEDED IS [phone]. COPY OF [facility] FORM IS ON THE CHART AND BEDSIDE RN NOTIFIED WELL TO COMPLETE TRANSPORT FORM PRIOR TO DISCHARGE. CM NOTIFIED [facility] THAT PATIENT IS ON 1:1 MONITORING DUE TO GOING TO INPATIENT [facility], [facility] SPOKE WITH SCOUT. CASE CLOSED.
--- NOTE | 2020-12-02 14:52 | NUR ---
ASSUMED CARE OF PT THIS MORNING AT 0700. NO CHANGES SINCE REPORT GIVEN LAST NIGHT. ASSESSMENTS CHARTED AND OTHERWISE UNREMARKABLE. PT WILL BE DISCHARGED THIS AFTERNOON TO [facility]. PT HAS BEEN PLEASANT THIS MORNING AND WITH SITTER. CALL LIGHT AND OTHER NEEDS ARE WITHIN REACH. IV HAS BEEN DC'D. MEDS AND TX GIVEN NEEDED AND SCHEDULED. WILL MONITOR AND NOTE ANY CHANGES.
[2020-12-02 15:40] VITALS: BP 155/77
== END 2020-12-02 16:01 | DRG 917 ==
LOC: ER 17:24 → 4S 22:30 → EROBS 22:30 → 4S 12-01 02:42
PROVIDERS: Nurse Practitioner Family; Student in an Organized Health Care Education/Training Program; ADMIT Hospitalist; ATTEND Hospitalist
DX: T43.211A Poisoning by selective serotonin and norepinephrine reuptake inhibitors, accidental (unintentional), initial encounter (principal); G93.41 Metabolic encephalopathy; N17.9 Acute kidney failure, unspecified; F23 Brief psychotic disorder; F03.90 Unspecified dementia, unspecified severity, without behavioral disturbance, psychotic disturbance, mood disturbance, and anxiety; I10 Essential (primary) hypertension; R53.81 Other malaise; E78.5 Hyperlipidemia, unspecified; F32.9 Major depressive disorder, single episode, unspecified; E86.1 Hypovolemia; K21.9 Gastro-esophageal reflux disease without esophagitis; Z20.822 Contact with and (suspected) exposure to COVID-19; Z60.2 Problems related to living alone; Z86.73 Personal history of transient ischemic attack (TIA), and cerebral infarction without residual deficits; Z95.5 Presence of coronary angioplasty implant and graft; Z79.01 Long term (current) use of anticoagulants; Z79.82 Long term (current) use of aspirin; Z79.899 Other long term (current) drug therapy; Z88.8 Allergy status to other drugs, medicaments and biological substances; Z88.5 Allergy status to narcotic agent; Y92.89 Other specified places as the place of occurrence of the external cause
CPT/HCPCS: 10195

== ENCOUNTER 2021-02-07 15:05 | Emergency (ER) | payer MEDICARE ==
[~2021-02-07] VITALS: Ht 180.3 cm; Wt 81.7 kg
[~2021-02-07 15:05] MED LIST changes: +MIRALAX17 GM PO; +NORVASC5 MG PO; +TRAZODONE HCL50 MG PO
[2021-02-07 15:51] LABS: ABSOLUTE NEUTROPHILS 4.9 thou/uL (1.4-8.2); BASOPHILS 1.1 % (0.0-2.0); HEMATOCRIT 38.2 % (42.0-52.0); HEMOGLOBIN 12.7 gm/dL (14.0-18.0); LYMPHOCYTES 20.9 % (24.0-44.0); MCH 28.8 pg (26.0-34.0); MCHC 33.2 g/dL (28.0-37.0); MONOCYTES 7.9 % (1.0-8.0); PLATELET COUNT 266 thou/uL (150-400); POLYS 67.1 % (36.0-66.0); WBC 7.3 thou/uL (4.0-11.0)
[2021-02-07 15:59] LABS: CALCIUM 8.6 mg/dL (8.5-10.1); POTASSIUM 3.6 mmol/L (3.5-5.1)
[2021-02-07 16:09] LABS: ALBUMIN 3.1 g/dL (3.4-5.0); TOTAL BILIRUBIN 0.5 mg/dL (0.2-1.0); TOTAL PROTEIN 7.2 g/dL (6.4-8.2)
[2021-02-07 18:07] LABS: URINE BILIRUBIN NEGATIVE (Negative); URINE BLOOD 1+ (Negative); URINE CLARITY CLEAR; URINE COLOR YELLOW; URINE GLUCOSE-RANDOM* NEGATIVE (Negative); URINE KETONES 1+ (Negative); URINE LEUKOCYTES-REFLEX NEGATIVE (Negative); URINE NITRITE-REFLEX NEGATIVE (Negative); URINE PROTEIN (DIPSTICK) NEGATIVE (Negative)
[2021-02-07 18:27] LABS: CASTS None Seen /LPF (None Seen); SQUAMOUS 0-3 Few /LPF (0-3); URINE RBC 1-2 Rare /HPF (NONE SEEN); URINE WBC-REFLEX 0-5 Rare /HPF (0-5)
[2021-02-07 18:28] LABS: BACTERIA-REFLEX 1-9 Few /HPF (None Seen); CRYSTALS None Seen /LPF (None Seen)
[2021-02-07 19:36] VITALS: BP 132/81
--- NOTE | 2021-02-08 12:31 | EKG ---
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: [facility] : 1950 Requested By: Lita Way Order Number: [id number] MD: Som Young Measurements Intervals [place] Rate: 63 P: 3 [place]: 205 QRS: 13 QRSD: 97 T: 1 QT: 460 QTc: 471 Interpretive Statements Sinus rhythm No significant abnormality Compared to ECG 11/30/2020 17:34:53 No significant changes Electronically Signed On 02-08-2021 12:30:51 TRACTOR OPERATOR LASER LEVELING by Som Young [email or web address] <ELECTRONICALLY SIGNED> By: Som Young MD, [facility] 02/08/21 1230 1703 1703 Som Young MD, FACC /EPI
== END 2021-02-07 19:37 | disposition home or self-care (01) ==
LOC: ER 15:05
PROVIDERS: Physician Assistant
DX: S22.41XA Multiple fractures of ribs, right side, initial encounter for closed fracture (principal); E86.0 Dehydration; I10 Essential (primary) hypertension; K21.9 Gastro-esophageal reflux disease without esophagitis; Z79.899 Other long term (current) drug therapy; Z88.6 Allergy status to analgesic agent; W19.XXXA Unspecified fall, initial encounter; Y93.89 Activity, other specified; Y92.89 Other specified places as the place of occurrence of the external cause; Y99.8 Other external cause status

== ENCOUNTER 2021-04-17 15:34 | Emergency (ER) | payer MEDICARE ==
[~2021-04-17] VITALS: Ht 180.3 cm; Wt 63.5 kg
[2021-04-17 16:56] LABS: ABSOLUTE NEUTROPHILS 5.4 thou/uL (1.4-8.2); BASOPHILS 0.6 % (0.0-2.0); EOSINOPHILS 1.2 % (0.0-3.0); HEMATOCRIT 37.2 % (42.0-52.0); HEMOGLOBIN 12.2 gm/dL (14.0-18.0); LYMPHOCYTES 15.1 % (24.0-44.0); MCH 29.7 pg (26.0-34.0); MCHC 32.8 g/dL (28.0-37.0); MCV 90.7 fL (80.0-100.0); MONOCYTES 6.8 % (1.0-8.0); PLATELET COUNT 254 thou/uL (150-400); POLYS 76.3 % (36.0-66.0); RBC 4.09 mil/uL (4.50-6.00); RDW 15.6 % (10.5-14.5)
[2021-04-17 17:05] LABS: CALCIUM 8.7 mg/dL (8.5-10.1); CREATININE 1.2 mg/dL (0.7-1.3); POTASSIUM 3.8 mmol/L (3.5-5.1)
[2021-04-17 17:16] LABS: ALBUMIN 3.2 g/dL (3.4-5.0); MAGNESIUM 1.3 mg/dL (1.8-2.4); TOTAL BILIRUBIN 0.5 mg/dL (0.2-1.0); TOTAL PROTEIN 7.3 g/dL (6.4-8.2)
[2021-04-17 18:52] VITALS: BP 147/73
--- NOTE | 2021-04-19 10:29 | EKG ---
[place] [address] [facility] [place] [address] ELECTROCARDIOGRAM REPORT Name: NELLIE LOCO YOHANA Room #: [facility]P [facility]#: [id number] Admission: 04/17/21 Attend Phys: Discharge: 04/17/21 Date of : 46 Report #: [id number] 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 : 1950 Requested By: Lita Way Order Number: [id number] MD: Stephen Duran Measurements Intervals [place] Rate: 58 P: 10 [place]: 196 QRS: 21 QRSD: 95 T: 11 QT: 476 QTc: 468 Interpretive Statements Sinus rhythm Baseline wander in lead(s) V2 Compared to ECG 02/07/2021 17:03:38 No significant changes Electronically Signed On 04-19-2021 10:28:37 MAINTENANCE WORKER HOUSE TRAILER by Stephen Duran [email or web address] <ELECTRONICALLY SIGNED> By: Stephen Duran MD, [facility] 04/19/21 1028 164 41 Stephen Duran MD, FACC /EPI
== END 2021-04-17 19:17 | disposition home or self-care (01) ==
LOC: ER 15:34
PROVIDERS: Physician Assistant
DX: U07.1 COVID-19 (principal); S00.83XA Contusion of other part of head, initial encounter; S09.90XA Unspecified injury of head, initial encounter; W19.XXXA Unspecified fall, initial encounter; Y93.89 Activity, other specified; Y92.89 Other specified places as the place of occurrence of the external cause; Y99.8 Other external cause status